=== PATIENT | male | born 1995 | race Caucasian/White ===

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

== ENCOUNTER 2019-01-25 16:00 | Emergency (ER) | payer SELFPAY ==
[~2019-01-25] VITALS: Ht 175.3 cm; Wt 113.4 kg
[~2019-01-25 16:00] MED LIST changes: +BENZ100C18 PO; +CEPH-507 PO; +NAPR-915 PO; -NAPR500T3 PO
[2019-01-25] MEDS ORDERED: ANTACID SUSP 30 ML UDC (MYLANTA) PO ONE (16:30)
[2019-01-25] MEDS ORDERED: LIDOCAINE 2% VISCOUS 15 ML UDC PO ONE (16:30)
[2019-01-25] MEDS ORDERED: NS IV 1000 ML 1,000 ML IV SCH (16:30)
[2019-01-25] MEDS ORDERED: ONDANSETRON 4 MG/2 ML (SDV) Z0FRAN IVP ONE (16:30)
[2019-01-25 16:41] LABS: BASOPHILS % (AUTO) 0 % (0-10); EOSINOPHILS # (AUTO) 0.2 10^3/uL (0.0-0.3); EOSINOPHILS % (AUTO) 2 % (0-10); HEMATOCRIT 46 % (40-54); HEMOGLOBIN 15.4 G/DL (13.3-17.7); LYMPHOCYTES # (AUTO) 2.9 X 10^3 (1.0-4.0); LYMPHOCYTES % (AUTO) 29 % (12-44); MEAN CORPUSCULAR HEMOGLOBIN 29 PG (25-34); MEAN CORPUSCULAR HGB CONC 34 G/DL (32-36); MEAN CORPUSCULAR VOLUME 86 FL (80-99); MEAN PLATELET VOLUME 9.4 FL (7.4-10.4); MONOCYTES # (AUTO) 0.6 X 10^3 (0.0-1.0); MONOCYTES % (AUTO) 6 % (0-12); NEUTROPHILS # (AUTO) 6.3 X 10^3 (1.8-7.8); NEUTROPHILS % (AUTO) 63 % (42-75); PLATELET COUNT 336 10^3/uL (130-400); RED CELL DISTRIBUTION WIDTH 12.7 % (10.0-14.5)
--- NOTE | 2019-01-25 16:46 | ED Abdominal Pain ---
General Chief Complaint: Abdominal/GI Problems Stated Complaint: STOMACH PAIN Nursing Triage Note: PT AMBULATE TO TRIAGE WITH C/O N/V FOR 2-3 DAYS. PT STATES THAT HE CANNOT KEEP ANYTHING DOWN AND WILL "DRY HEAVE" IF HE HASN'T EATEN ANYTHING. PT REPORTS ABD PAIN MIDLINE UPPER ABD. Sepsis Screen: No Definite Risk Source of Information: Patient Exam Limitations: No Limitations History of Present Illness Date Seen by Provider: Jan 25, 2019 Time Seen by Provider: 16:43 Initial Comments To ER with a 2 to three-day history of vomiting after eating and nausea when he hasn't eaten. Epigastric abdominal pain. This follows having a a few alcoholic drinks, can't quantify how much exactly the night before. Timing/Duration: 2-3 Days Severity/Quality: Moderate Radiation: No Radiation Activities at Onset: None Modifying Factors: Improves With Vomiting Associated Symptoms: Nausea/Vomiting Allergies and Home Medications Allergies Coded Allergies: No Known Drug Allergies (Unverified , 04/08/14) Home Medications Benzonatate 100 Mg Capsule, 100 MG PO TID PRN for COUGH Prescribed by: SHAHLA GARIBAY on 11/29/161921 Cephalexin 500 Mg Capsule, 500 MG PO TID Prescribed by: SHAHLA GARIBAY on 11/29/161921 Patient Home Medication List Home Medication List Reviewed: Yes Review of Systems Review of Systems Constitutional: see HPI EENTM: No Symptoms Reported Respiratory: No Symptoms Reported Gastrointestinal: See HPI, Abdominal Pain, Nausea, Vomiting Genitourinary: No Symptoms Reported Musculoskeletal: no symptoms reported Skin: no symptoms reported Psychiatric/Neurological: No Symptoms Reported Endocrine: No Symptoms Reported Hematologic/Lymphatic: No Symptoms Reported Past Hmlzimn-Ffrtoo-Wsbbme Hx Patient Social History Alcohol Use: Occasionally Uses Number of Drinks Today: AA Alcohol Beverage of Choice: Beer Recreational Drug Use: No Smoking Status: Current Everyday Smoker Type Used: Cigarettes 2nd Hand Smoke Exposure: Yes Recent Foreign Travel: No Contact w/Someone Who Travel: No Recent Infectious Disease Expo: No Recent Hopitalizations: No Physical Abuse: No Sexual Abuse: No Mistreated: No Fear: No Immunizations Up To Date PED Vaccines UTD: Yes Seasonal Allergies Seasonal Allergies: Yes Past Medical History Surgeries: Yes Adenoidectomy, Ear Surgery, Tonsillectomy Respiratory: No Cardiac: No Hypotension Neurological: No Headaches /Migraines Reproductive Disorders: No Sexually Transmitted Disease: No Genitourinary: No Gastrointestinal: No Musculoskeletal: No Endocrine: No HEENT: No Cancer: No Psychosocial: Yes Schizophrenia Integumentary: No Blood Disorders: No Family Medical History Heart Disease, Diabetes, Hypertension Physical Exam Vital Signs Vital Signs - First Documented 01/25/19 16:20 Temp 36.9 Pulse 89 Resp 18 B/P (MAP) 154/93 (113) O2 Delivery Room Air Capillary Refill : Less Than 3 Seconds Height/Weight/BMI Height: 5'9.00" Weight: 280lbs. 0oz. 127.726547ep; 36.00 BMI Method:Stated General Appearance: WD/WN, no apparent distress HEENT: PERRL/EOMI, normal ENT inspection Respiratory: no respiratory distress, no accessory muscle use Cardiovascular: regular rate, rhythm, no murmur Gastrointestinal: normal bowel sounds, soft, tenderness Extremities: normal range of motion, non-tender Neurologic/Psychiatric: alert, normal mood/affect, oriented x 3 Skin: normal color, warm/dry Progress/Results/Core Measures Results/Orders Lab Results Laboratory Tests Test 01/25/19 16:33 Range/Units My Orders Orders - SHAHLA GARIBAY APRN Cbc With Automated Diff (01/25/19 16:29) Comprehensive Metabolic Panel (01/25/19 16:29) Ua Culture If Indicated (01/25/19 16:29) Ed Iv/Invasive Line Start (01/25/19 16:29) Lipase (01/25/19 16:29) Ondansetron Injection (Zofran Injectio (01/25/19 16:30) Ns Iv 1000 Ml (Sodium Chloride 0.9%) (01/25/19 16:30) Antacid Suspension (Mylanta Suspension (01/25/19 16:30) Lidocaine 2% Viscous 15 Ml (Xylocaine Vi (01/25/19 16:30) Vital Signs/I&O 01/25/19 16:20 Temp 36.9 Pulse 89 Resp 18 B/P (MAP) 154/93 (113) O2 Delivery Room Air Blood Pressure Mean: 113 POS Departure Impression Primary Impression: Gastritis Qualified Codes: K29.00 - Acute gastritis without bleeding Disposition: 01 HOME, SELF-CARE Condition: Improved Departure-Patient Inst. Referrals: NO,LOCAL PHYSICIAN (PCP/Family) Primary Care Physician SHAHLA GARIBAY APRN Jan 25, 2019 16:46 POS
[2019-01-25 17:01] LABS: ALANINE AMINOTRANSFERASE 21 U/L (0-55); ALBUMIN 4.5 GM/DL (3.2-4.5); ALKALINE PHOSPHATASE 97 U/L (40-136); BILIRUBIN,TOTAL 0.4 MG/DL (0.1-1.0); BUN/CREATININE RATIO 12; CALCIUM 9.4 MG/DL (8.5-10.1); CARBON DIOXIDE 24 MMOL/L (21-32); CHLORIDE 106 MMOL/L (98-107); CREATININE SERUM 1.25 MG/DL (0.60-1.30); GFR ESTIMATED > 60; GLUCOSE 114 MG/DL (70-105); LIPASE 7 U/L (8-78); POTASSIUM 3.4 MMOL/L (3.6-5.0); SODIUM 141 MMOL/L (135-145); TOTAL PROTEIN 7.4 GM/DL (6.4-8.2)
[2019-01-25 17:49] LABS: CLARITY,URINE SL CLOUDY; COLOR,URINE YELLOW; GLUCOSE, URINE (UA) NEGATIVE (NEGATIVE); KETONES,URINE NEGATIVE (NEGATIVE); LEUKOCYTE ESTERASE ,URINE NEGATIVE (NEGATIVE); NITRITE,URINE NEGATIVE (NEGATIVE); PROTEIN,URINE NEGATIVE (NEGATIVE)
[2019-01-25 17:58] LABS: BACTERIA,URINE NEGATIVE /HPF; BILIRUBIN,URINE 1+ (NEGATIVE)
[2019-01-25] MEDS ORDERED: RX-HYDROCODONE/APAP 5/325 MG #4 TAB PK PO PRN (18:00)
[2019-01-25] MEDS ORDERED: RX-ONDANSETRON 4 MG ODT (ZOFRAN) PPK #4 PO STA (18:02)
[2019-01-25 18:14] VITALS: BP 155/97
== END 2019-01-25 18:15 | disposition home or self-care (01) ==
LOC: EDUNIT# 16:00 → ER 16:01
DX: K29.70 Gastritis, unspecified, without bleeding (principal); G43.909 Migraine, unspecified, not intractable, without status migrainosus; F20.9 Schizophrenia, unspecified; F17.210 Nicotine dependence, cigarettes, uncomplicated; Z90.89 Acquired absence of other organs; Z82.49 Family history of ischemic heart disease and other diseases of the circulatory system
CPT/HCPCS: 36415; 80053; 81000; 83690; 85025; 96361; 96374

== ENCOUNTER 2019-05-22 15:10 | Emergency (ER) | payer SELFPAY ==
[~2019-05-22] VITALS: Ht 172.7 cm; Wt 110.0 kg
[2019-05-22] MEDS ORDERED: NS IV 1000 ML 1,000 ML ONE (15:53)
[2019-05-22] MEDS ORDERED: NS IV 1000 ML 1,000 ML IV SCH (15:57)
[2019-05-22] MEDS ORDERED: LACTATED RINGERS 1,000 ML IV ONE ×2 (15:57→17:28)
[2019-05-22] MEDS ORDERED: ACETAMINOPHEN 500 MG TAB (TYLENOL) PO PRN (16:00)
--- NOTE | 2019-05-22 16:23 | ED Cough/URI ---
General Chief Complaint: Cough/Cold/Flu Symptoms Stated Complaint: FEVER,COUGHING,ACHES Nursing Triage Note: pt amb to triage with complaint of fever, cough, runny nose, and sore throat. 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 [employer], AND WENT TO BED YESTERDAY MORNING AND WAS COMPLETELY FINE WOKE UP YESTERDAY AROUND 1730, WITH FEVER AND SWEATING PROFUSELY HAS HAD A HEADACHE SINCE YESTERDAY C/O BODY ACHES C/O SEVERE SORE THROAT C/O OCCASIONALLY PRODUCTIVE COUGH --UNKNOWN COLOR SPUTUM C/O CLEAR RUNNY NOSE CHEST BRUCE WITH COUGHING AND ONLY GETS SHORT OF BREATH WHEN HE HAS A "COUGHING FITS" TOOK 4 TYLENOL JUST PRIOR TO ARRIVAL HAS NOT CHECKED TEMP AT HOME HAS NOT TAKEN ANYTHING ELSE FOR SYMPTOMS HIS ROOM MATE/"EX-GIRLFRIEND" IS NOT ILL DOES NOT KNOW IF HE HAS HAD CONTACT WITH ANYONE WHO IS ILL, THROUGH HIS WORK PT DOES NOT HAVE A HISTORY OF ANY RESPIRATORY PROBLEMS PT SMOKES 1 PPD PT ALSO SMOKES THC DAILY, INCLUDING TODAY PT ALSO SMOKES METH ON REGULAR /DAILY BASIS, CLAIMS LAST USE WAS 05/06/19 PCP: NONE Allergies and Home Medications Allergies Coded Allergies: No Known Drug Allergies (Unverified , 04/08/14) Home Medications Benzonatate 100 Mg Capsule, 100 MG PO TID PRN for COUGH Prescribed by: SHAHLA GARIBAY on 11/29/161921 Cephalexin 500 Mg Capsule, 500 MG PO TID Prescribed by: SHAHLA GARIBAY on 11/29/161921 Patient Home Medication List Home Medication List Reviewed: Yes Review of Systems Review of Systems Constitutional: see HPI, chills, diaphoresis, fever EENTM: see HPI, nose congestion, throat pain Respiratory: see HPI, cough, phlegm Cardiovascular: see HPI Gastrointestinal: no symptoms reported; No abdominal pain, No nausea Musculoskeletal: see HPI (BODY ACHES) Skin: no symptoms reported; No rash Psychiatric/Neurological: See HPI, Headache Hematologic/Lymphatic: No Symptoms Reported Immunological/Allergic: no symptoms reported Past Uckfyfq-Apskpu-Ugwhsj Hx Patient Social History Alcohol Use: Regular Use (24 PACK/ DAY) Number of Drinks Today: AA Alcohol Beverage of Choice: Beer Recreational Drug Use: Yes (SMOKES METH AND THC) Drug of Choice: SMOKES METH AND THC Smoking Status: Current Everyday Smoker (1 PPD) Type Used: Cigarettes 2nd Hand Smoke Exposure: Yes Recent Foreign Travel: No Contact w/Someone Who Travel: No Recent Infectious Disease Expo: No Recent Hopitalizations: No Immunizations Up To Date PED Vaccines UTD: Yes Seasonal Allergies Seasonal Allergies: Yes Past Medical History Surgeries: Yes Adenoidectomy, Ear Surgery, Tonsillectomy Respiratory: No Cardiac: No Hypotension Neurological: Yes Headaches /Migraines Reproductive Disorders: No Sexually Transmitted Disease: No Genitourinary: No Gastrointestinal: No Musculoskeletal: No Endocrine: No HEENT: No Cancer: No Psychosocial: Yes (POLYSUBSTANCE ABUSE) Schizophrenia Integumentary: No Blood Disorders: No Family Medical History Heart Disease, Diabetes, Hypertension Physical Exam Vital Signs - First Documented 05/22/19 15:17 Temp 37.6 Pulse 138 Resp 22 B/P (MAP) 127/87 (100) Pulse Ox 94 O2 Delivery Room Air Capillary Refill : Less Than 3 Seconds Height: 5'9.00" Weight: 280lbs. 0oz. 127.446043mu; 36.00 BMI Method:Stated General Appearance: WD/WN, no apparent distress, other (VERY ANXIOUS, PROFUSELY DIAPHORETIC, SKIN FLUSHED AND VERY WARM. PT MILDLY DYSPNEIC VS HYPERVENTILATING DUE TO ANXIETY) HEENT: PERRL/EOMI, TMs normal; No photophobia; pharyngeal erythema; No tonsillar exudate; other (NASAL CONGESTION, WITH CLEAR RHINORRHEA AND POST NASAL DRAINAGE) Neck: non-tender, full range of motion, supple, normal inspection; No lymphadenopathy (R), No lymphadenopathy (L) Respiratory: normal breath sounds, no accessory muscle use, other (MILD DYSPNEA/TACHYPNEA VS HYPERVENTILATING DUE TO ANXIETY) Cardiovascular: no edema, no murmur, tachycardia Gastrointestinal: normal bowel sounds, non tender, soft Extremities: normal inspection, no pedal edema, no calf tenderness, normal capillary refill Neurologic/Psychiatric: clinical faculty II-XII nml as tested, no motor/sensory deficits, alert, oriented x 3, other (ANXIOUS) Skin: diaphoresis (VERY WARM AND FLUSHED, PROFUSELY DIAPHORETIC. ), ecchymosis (EXTENSIVE OLD "BRUISES" TO ESPECIALLY RIGHT SHOULDER, TO CHEST, NECK AND LEFT SHOULDER--PT STATES "MY GIRLFRIEND IS EXCESSIVE" --STATES THEY ARE DUE TO "HICKEYS" AND NOT ACTUAL TRAUMA. ) Progress/Results/Core Measures Suspected Sepsis Recent Fever Within 48 Hours: Yes Infection Criteria Present: None New/Unexplained Altered Menta: No Sepsis Screen: No Definite Risk SIRS Temperature: Pulse: 138 Respiratory Rate: 22 Laboratory Tests 05/22/19 16:20: White Blood Count 19.9H Blood Pressure 127 /87 Mean: 100 Laboratory Tests 05/22/19 16:20: Creatinine 1.00, Platelet Count 375, Total Bilirubin 0.3 Results/Orders Lab Results Laboratory Tests Test 05/22/19 16:20 05/22/19 16:49 Range/Units White Blood Count 19.9 H 4.3-11.0 10^3/uL Red Blood Count 5.20 4.35-5.85 10^6/uL Hemoglobin 14.9 13.3-17.7 G/DL Hematocrit 44 40-54 % Mean Corpuscular Volume 85 80-99 FL Mean Corpuscular Hemoglobin 29 25-34 PG Mean Corpuscular Hemoglobin Concent 34 32-36 G/DL Red Cell Distribution Width 13.5 10.0-14.5 % Platelet Count 375 130-400 10^3/uL Mean Platelet Volume 9.0 7.4-10.4 FL Neutrophils (%) (Auto) 84 H 42-75 % Lymphocytes (%) (Auto) 7 L 12-44 % Monocytes (%) (Auto) 9 0-12 % Eosinophils (%) (Auto) 0 0-10 % Basophils (%) (Auto) 0 0-10 % Neutrophils # (Auto) 16.6 H 1.8-7.8 X 10^3 Lymphocytes # (Auto) 1.4 1.0-4.0 X 10^3 Monocytes # (Auto) 1.8 H 0.0-1.0 X 10^3 Eosinophils # (Auto) 0.0 0.0-0.3 10^3/uL Basophils # (Auto) 0.0 0.0-0.1 10^3/uL Neutrophils % (Manual) 79 % Lymphocytes % (Manual) 12 % Monocytes % (Manual) 9 % Blood Morphology Comment NORMAL Sodium Level 142 135-145 MMOL/L Potassium Level 3.6 3.6-5.0 MMOL/L Chloride Level 109 H 98-107 MMOL/L Carbon Dioxide Level 21 21-32 MMOL/L Anion Gap 12 5-14 MMOL/L Blood Urea Nitrogen 8 7-18 MG/DL Creatinine 1.00 0.60-1.30 MG/DL Estimat Glomerular Filtration Rate > 60 BUN/Creatinine Ratio 8 Glucose Level 113 H 70-105 MG/DL Calcium Level 8.9 8.5-10.1 MG/DL Corrected Calcium 8.7 8.5-10.1 MG/DL Magnesium Level 2.0 1.6-2.4 MG/DL Total Bilirubin 0.3 0.1-1.0 MG/DL Aspartate Amino Transf (AST/SGOT) 16 5-34 U/L Alanine Aminotransferase (ALT/SGPT) 37 0-55 U/L Alkaline Phosphatase 77 40-136 U/L Total Protein 7.3 6.4-8.2 GM/DL Albumin 4.3 3.2-4.5 GM/DL Serum Alcohol < 10 <10 MG/DL Monoscreen NEGATIVE NEGATIVE Group A Streptococcus Screen NEGATIVE NEGATIVE Urine Color YELLOW Urine Clarity CLEAR Urine pH 6.0 5-9 Urine Specific [place] >=1.030 1.016-1.022 Urine Protein TRACE H NEGATIVE Urine Glucose (UA) NEGATIVE NEGATIVE Urine Ketones NEGATIVE NEGATIVE Urine Nitrite NEGATIVE NEGATIVE Urine Bilirubin NEGATIVE NEGATIVE Urine Urobilinogen 0.2 < = 1.0 MG/DL Urine Leukocyte Esterase NEGATIVE NEGATIVE Urine RBC (Auto) NEGATIVE NEGATIVE Urine RBC 0-2 /HPF Urine WBC 2-5 /HPF Urine Crystals PRESENT H /LPF Urine Amorphous Sediment FEW ERIC URATES H /LPF Urine Bacteria TRACE /HPF Urine Casts NONE /LPF Urine Mucus LARGE H /LPF Urine Culture Indicated CULTURE PENDING Urine Opiates Screen NEGATIVE NEGATIVE Urine Oxycodone Screen NEGATIVE NEGATIVE Urine Methadone Screen NEGATIVE NEGATIVE Urine Propoxyphene Screen NEGATIVE NEGATIVE Urine Barbiturates Screen NEGATIVE NEGATIVE Ur Tricyclic Antidepressants Screen NEGATIVE NEGATIVE Urine Phencyclidine Screen NEGATIVE NEGATIVE Urine Amphetamines Screen NEGATIVE NEGATIVE Urine Methamphetamines Screen POSITIVE H NEGATIVE Urine Benzodiazepines Screen NEGATIVE NEGATIVE Urine Cocaine Screen NEGATIVE NEGATIVE Urine Cannabinoids Screen POSITIVE H NEGATIVE Micro Results Microbiology 05/22/19 Influenza Types A,B Antigen (DANICA) - Final, Complete My Orders Orders - FAVIO,KIKI K DO Ed Iv/Invasive Line Start (05/22/19 15:57) Monitor-Rhythm Ecg Trace Only (05/22/19 15:57) Cbc With Automated Diff (05/22/19 15:57) Comprehensive Metabolic Panel (05/22/19 15:57) Blood Culture (05/22/19 15:57) Urinalysis (05/22/19 15:57) Urine Culture (05/22/19 15:57) Protime With Inr (05/22/19 15:57) Partial Thromboplastin Time (05/22/19 15:57) Chest 1 View, Ap/Pa Only (05/22/19 15:57) Acetaminophen Tablet (Tylenol Tablet) (05/22/19 16:00) Ed Iv/Invasive Line Start (05/22/19 15:57) Ed Iv/Invasive Line Start (05/22/19 15:57) Vital Signs Adult Sepsis Patie Q15M (05/22/19 15:57) O2 (05/22/19 15:57) Remove Rings In Anticipation O (05/22/19 15:57) Lactic Acid Analyzer (05/22/19 15:57) Lactated Ringers (Lr 1000 Ml Iv Solution (05/22/19 15:57) Ns Iv 1000 Ml (Sodium Chloride 0.9%) (05/22/19 15:57) Drug Screen Stat (Urine) (05/22/19 15:57) Magnesium (05/22/19 15:57) Monotest (05/22/19 15:57) Rapid Strep A Screen (05/22/19 15:57) Ns Iv 1000 Ml (Sodium Chloride 0.9%) (05/22/19 15:53) Manual Differential (05/22/19 16:20) Alcohol (05/22/19 16:42) Ceftriaxone For Iv Use (Rocephin For I (05/22/19 17:30) Ed Iv/Invasive Line Start (05/22/19 17:28) Lactated Ringers (Lr 1000 Ml Iv Solution (05/22/19 17:28) Vital Signs/I&O 05/22/19 15:17 Temp 37.6 Pulse 138 Resp 22 B/P (MAP) 127/87 (100) Pulse Ox 94 O2 Delivery Room Air Capillary Refill : Less Than 3 Seconds Blood Pressure Mean: 100 Progress Note : Progress Note USED FULL PPE AT ALL TIMES WHEN IN ROOM WITH PT. NO COUGH NOTED AT ANY TIME DURING ER STAY GIVEN IV FLUIDS AND PT CALMED, HEART RATE DOWN AND IS NO LONGER DIAPHORETIC, RESPIRATIONS ARE EVEN AND UNLABORED PT ADVISED THAT BOTH HE AND HIS ROOM MATE SELF - QUARANTINE FOR THE NEXT 14 DAYS Diagnostic Imaging Comments CXR--NO ACUTE PROCESS, PER RADIOLOGIST REPORT AT 1717 Reviewed: Reviewed by Me Departure Communication (Admissions) 1729--ATTEMPTING TO CONTACT [facility] 1743--SPOKE WITH SCREENER, SHE ADVISES TO DISCUSS WITH CEMENTER MACHINE 1745--PAGING CEMENTER MACHINE, WILL CALL BACK 1805--SPOKE WITH [facility] CEMENTER MACHINE, HE ADVISES TESTING, BUT RECOMMENDS SENDING TO ALTERNATIVE LAB SUCH [facility] OR [facility], THEY ARE AT NEAR-CAPACITY, AND TURNAROUND IS GREATER THAN 3 DAYS WITH [facility]. PT DOES NOT MEET ADMISSION CRITERIA, AND PT'S SYMPTOMS COULD ALSO BE ATTRIBUTED TO HIS RECENT METHAMPHETAMINE USE. WILL TREAT PROPHYLACTICALLY WITH ANTIBIOTICS DUE TO LEUKOCYTOSIS Impression Primary Impression: Fever Additional Impressions: Methamphetamine use Leukocytosis Disposition: HOME, SELF-CARE Condition: Improved Departure-Patient Inst. Referrals: NO,LOCAL PHYSICIAN (PCP/Family) Primary Care Physician Patient Instructions: COVID19, Fever, Adult (DC), Methamphetamine Add. Discharge Instructions: NO DRUGS OF ANY KIND!!! NO SMOKING !!!! NO ALCOHOL!!!! LOTS OF CLEAR LIQUIDS--WATER, BROTH, JELLO, GATORADE--DRINK ENOUGH FLUIDS SO YOU ARE URINATING EVERY 2-3 HOURS WHILE AWAKE TAKE TYLENOL 1 GRAM/ AND MOTRIN 800 MG 4 TIMES A DAY FOR PAIN OR FEVER OVER THE COUNTER MEDICATIONS FOR COUGH AND CONGESTION SUCH MUCINEX DM SELF-QUARANTINE FOR BOTH YOU AND YOUR ROOM MATE FOR THE NEXT 14 DAYS RETURN TO ER IF SYMPTOMS WORSEN All discharge instructions reviewed with patient and/or family. Voiced understanding. Scripts Cefdinir (Cefdinir) 300 Mg Capsule 300 MG PO BID, #20 CAP 0 Refills Prov: KIKI STAHL DO 05/22/19 Work/School Note: Work Release Form Date Seen in the Emergency Department: May 22, 2019 Return to Work: Jun 05, 2019 KIKI STAHL DO May 22, 2019 16:23
[2019-05-22 16:30] LABS: BASOPHILS % (AUTO) 0 % (0-10); EOSINOPHILS % (AUTO) 0 % (0-10); HEMATOCRIT 44 % (40-54); HEMOGLOBIN 14.9 G/DL (13.3-17.7); LYMPHOCYTES # (AUTO) 1.4 X 10^3 (1.0-4.0); LYMPHOCYTES % (AUTO) 7 % (12-44); MEAN CORPUSCULAR HEMOGLOBIN 29 PG (25-34); MEAN CORPUSCULAR HGB CONC 34 G/DL (32-36); MEAN CORPUSCULAR VOLUME 85 FL (80-99); MONOCYTES # (AUTO) 1.8 X 10^3 (0.0-1.0); MONOCYTES % (AUTO) 9 % (0-12); NEUTROPHILS # (AUTO) 16.6 X 10^3 (1.8-7.8); NEUTROPHILS % (AUTO) 84 % (42-75); PLATELET COUNT 375 10^3/uL (130-400); RED CELL DISTRIBUTION WIDTH 13.5 % (10.0-14.5); WHITE BLOOD COUNT 19.9 10^3/uL (4.3-11.0)
[2019-05-22 16:53] LABS: BILIRUBIN,URINE NEGATIVE (NEGATIVE); CLARITY,URINE CLEAR; COLOR,URINE YELLOW; GLUCOSE, URINE (UA) NEGATIVE (NEGATIVE); KETONES,URINE NEGATIVE (NEGATIVE); LEUKOCYTE ESTERASE ,URINE NEGATIVE (NEGATIVE); NITRITE,URINE NEGATIVE (NEGATIVE); PROTEIN,URINE TRACE (NEGATIVE)
[2019-05-22 16:55] LABS: LYMPHOCYTES % (MANUAL) 12 %; MONOCYTES % (MANUAL) 9 %; NEUTROPHILS % (MANUAL) 79 %; RBC MORPH NORMAL
[2019-05-22 17:00] LABS: ALANINE AMINOTRANSFERASE 37 U/L (0-55); ALBUMIN 4.3 GM/DL (3.2-4.5); ALKALINE PHOSPHATASE 77 U/L (40-136); BILIRUBIN,TOTAL 0.3 MG/DL (0.1-1.0); BUN/CREATININE RATIO 8; CALCIUM 8.9 MG/DL (8.5-10.1); CARBON DIOXIDE 21 MMOL/L (21-32); CHLORIDE 109 MMOL/L (98-107); GFR ESTIMATED > 60; GLUCOSE 113 MG/DL (70-105); POTASSIUM 3.6 MMOL/L (3.6-5.0); SODIUM 142 MMOL/L (135-145); TOTAL PROTEIN 7.3 GM/DL (6.4-8.2)
--- NOTE | 2019-05-22 17:06 | Diagnostic Imaging Report ---
INDICATION: Fever and cough. COMPARISON: Comparison is made to prior study from November 21, 2016. FINDINGS: Lungs demonstrate no focal infiltrate or consolidation. There is no effusion. There is no pneumothorax. Heart size and mediastinal contours are appropriate. Pulmonary vascularity appears normal. No acute or suspicious osseous abnormality demonstrated. IMPRESSION: 1. No radiographic evidence of an acute cardiopulmonary process. Dictated by: Dictated on workstation # [id number]
[2019-05-22 17:23] LABS: AMPHETAMINE SCREEN, URINE NEGATIVE (NEGATIVE); BARBITURATE SCREEN URINE NEGATIVE (NEGATIVE); BENZODIAZEPINES SCREEN URINE NEGATIVE (NEGATIVE); CANNABINOID SCREEN, URINE POSITIVE (NEGATIVE); COCAINE SCREEN URINE NEGATIVE (NEGATIVE); METHADONE STAT NEGATIVE (NEGATIVE); METHAMPHETAMINE SCREEN URINE S POSITIVE (NEGATIVE); OPIATE SCREEN URINE NEGATIVE (NEGATIVE); OXYCODONE STAT NEGATIVE (NEGATIVE); PROPOXYPHENE STAT NEGATIVE (NEGATIVE); TRICYCLIC ANTIDEPRESSANTS SCRE NEGATIVE (NEGATIVE)
[2019-05-22 17:30] LABS: AMORPHOUS SEDIMENT,UR FEW AMOR URATES /LPF; BACTERIA,URINE TRACE /HPF; RBC,URINE 0-2 /HPF
[2019-05-22] MEDS ORDERED: cefTRIAXone FOR IV USE 1,000 MG in WATER (STERILE) FOR INJECTION 10 ML IV ONE (17:30)
[2019-05-22 18:21] LABS: PROTHROMBIN TIME PATIENT 13.8 SEC (12.2-14.7)
[2019-05-22] MEDS ORDERED: CEFD300C3 PO (18:27)
[2019-05-22 19:40] VITALS: BP 128/83
--- NOTE | 2019-05-24 18:54 | NUR ---
Attempted to call patient on both numbers given to us and they were not good numbers for him. His COVID-19 test results are negative and called to the [facility] Department who will try to contact him.
== END 2019-05-22 19:40 | disposition home or self-care (01) ==
LOC: EDUNIT# 15:10 → ER 15:12
DX: D72.829 Elevated white blood cell count, unspecified (principal); F15.10 Other stimulant abuse, uncomplicated; F17.210 Nicotine dependence, cigarettes, uncomplicated
CPT/HCPCS: 36415; 71045; 80053; 80306; 80320; 81000; 83605; 83735; 85007; 85027; 85610; 85730; 86308; 87040; 87088; 87430; 87635; 87804; 93041; 96361; 96374

== ENCOUNTER 2020-01-25 14:03 | Emergency (ER) | payer SELFPAY ==
[~2020-01-25] VITALS: Ht 172.7 cm; Wt 99.7 kg
[~2020-01-25 14:03] MED LIST changes: +CEFD300C3 PO
[2020-01-25 14:11] VITALS: BP 143/93
--- NOTE | 2020-01-25 14:20 | ED Integumentary General ---
General Stated Complaint: LAC FAC, ABD PAIN Source: patient Exam Limitations: no limitations History of Present Illness Date Seen by Provider: Jan 25, 2020 Time Seen by Provider: 14:19 Initial Comments This is a 24-year-old male who presents to the ER with complaints of left facial laceration from a utility knife. States he went to bed drunk, woke up drunk, and was working in his garage when he accidentally cut the side of his face with a work knife. Bleeding controlled prior to arrival. Last tetanus unknown. No other injuries reported. Timing/Duration: just prior to arrival Allergies and Home Medications Allergies Coded Allergies: No Known Drug Allergies (Unverified , 04/08/14) Home Medications Benzonatate 100 Mg Capsule, 100 MG PO TID PRN for COUGH Prescribed by: SHAHLA GARIBAY on 11/29/161921 Cefdinir 300 Mg Capsule, 300 MG PO BID Prescribed by: KIKI STAHL on 05/22/191826 Cephalexin 500 Mg Capsule, 500 MG PO TID Prescribed by: SHAHLA GARIBAY on 11/29/161921 Patient Home Medication List Home Medication List Reviewed: Yes Review of Systems Review of Systems Constitutional: no symptoms reported EENTM: no symptoms reported Respiratory: no symptoms reported Cardiovascular: no symptoms reported Gastrointestinal: no symptoms reported Genitourinary: no symptoms reported Musculoskeletal: no symptoms reported Skin: see HPI Psychiatric/Neurological: No Symptoms Reported Endocrine: No Symptoms Reported Hematologic/Lymphatic: No Symptoms Reported Past Ewdmksv-Horbnw-Fohazq Hx Patient Social History Alcohol Beverage of Choice: Beer Drug of Choice: SMOKES METH AND THC Type Used: Cigarettes 2nd Hand Smoke Exposure: Yes Recent Foreign Travel: No Contact w/Someone Who Travel: No (N) Recent Hopitalizations: No Immunizations Up To Date PED Vaccines UTD: Yes Seasonal Allergies Seasonal Allergies: Yes Past Medical History Surgeries: Yes Adenoidectomy, Ear Surgery, Tonsillectomy Respiratory: No Cardiac: No Hypotension Neurological: Yes Headaches /Migraines Reproductive Disorders: No Sexually Transmitted Disease: No Genitourinary: No Gastrointestinal: No Musculoskeletal: No Endocrine: No HEENT: No Cancer: No Psychosocial: Yes (POLYSUBSTANCE ABUSE) Schizophrenia Integumentary: No Blood Disorders: No Family Medical History Heart Disease, Diabetes, Hypertension Physical Exam Vital Signs Vital Signs - First Documented 01/25/20 14:11 Pulse 99 Resp 20 B/P (MAP) 143/93 (110) Pulse Ox 96 O2 Delivery Room Air Capillary Refill : General Appearance: WD/WN, no apparent distress HEENT: PERRL/EOMI, normal ENT inspection, pharynx normal Neck: full range of motion, normal inspection Cardiovascular: regular rate, rhythm, no murmur Respiratory: lungs clear, normal breath sounds, no respiratory distress Extremities: normal range of motion, normal inspection Neurologic/Psychiatric: no motor/sensory deficits, alert, normal mood/affect, oriented x 3 Skin: normal color, warm/dry Skin Problem Location: face Skin Problem Character: other (3 cm laceration to left cheek) Procedures/Interventions Wound Location: Face (, left cheek) Wound Length (cm): 3 Wound's Depth, Shape: linear Wound Explored: clean Anesthesia: 1% Lidocaine Volume Anesthetic (ccs): 2 Suture: Prolene Suture Size: 5-0 Number of Sutures: 4 Progress Site cleansed with normal saline and chlorhexidine prep. Locally anesthetized area with 2 cc of lidocaine. Approximated laceration with 4 sutures, tolerated procedure well. Progress/Results/Core Measures Results/Orders My Orders Orders - NICOLE FIGUEROA APRN Dipht,Pertuss(Acell),Tet Adult (Boostrix (01/25/20 14:30) Lidocaine 1% Inj 20 Ml (Xylocaine 1% Inj (01/25/20 14:30) Medications Given in ED Current Medications Medications Dose Ordered Sig/Tiki Route Start Time Stop Time Status Last Admin Dose Admin Diphtheria/ Tetanus/Acell Pertussis 0.5 ml ONCE ONCE IM 01/25/20 14:30 01/25/20 14:31 DC 01/25/20 15:25 0.5 ML Lidocaine HCl 20 ml ONCE ONCE INJ 01/25/20 14:30 01/25/20 14:31 DC 01/25/20 15:25 20 ML Vital Signs/I&O 01/25/20 14:11 Pulse 99 Resp 20 B/P (MAP) 143/93 (110) Pulse Ox 96 O2 Delivery Room Air Progress Progress Note : Progress Note Reviewed discharge plan of care with him and he is agreeable with plan. Departure Impression Primary Impression: Laceration Disposition: 01 HOME, SELF-CARE Condition: Improved Departure-Patient Inst. Referrals: NO,LOCAL PHYSICIAN (PCP/Family) Primary Care Physician Patient Instructions: Laceration Repair With Stitches (DC) Add. Discharge Instructions: Plan: 1. Discharge home. 2. Return in 5 days to the ER for suture removal. 3. May wash with soap and water, pat dry, cover with dry dressing of working outside. 4. Monitor for any signs of infection such as redness, swelling, purulent drainage. Return if he develop any of these symptoms. 5. Your tetanus was updated today. NICOLE FIGUEROA ALUMNI SECRETARY Jan 25, 2020 14:20
[2020-01-25] MEDS ORDERED: TETANUS,DIPTH,PERTUSS P/F (BOOSTRIX) 0.5 ML VIAL IM ONE (14:30)
[2020-01-25] MEDS ORDERED: LIDOCAINE 1% INJ 20 ML 20 ML VIAL INJ ONE (14:30)
== END 2020-01-25 16:32 | disposition home or self-care (01) ==
LOC: EDUNIT# 14:03 → ER 14:04
DX: S01.412A Laceration without foreign body of left cheek and temporomandibular area, initial encounter (principal); Z23 Encounter for immunization; Z20.828 Contact with and (suspected) exposure to other viral communicable diseases; Z82.49 Family history of ischemic heart disease and other diseases of the circulatory system; Z83.3 Family history of diabetes mellitus; Z77.22 Contact with and (suspected) exposure to environmental tobacco smoke (acute) (chronic); W26.0XXA Contact with knife, initial encounter
CPT/HCPCS: 12013; 90715

== ENCOUNTER 2021-05-24 08:28 | Emergency (ER) | payer SELFPAY ==
[~2021-05-24] VITALS: Ht 172.7 cm; Wt 104.5 kg
[2021-05-24] MEDS ORDERED: IBUPROFEN 800 MG (MOTRIN) TAB PO ONE (08:45)
--- NOTE | 2021-05-24 08:45 | ED Fall/Injury ---
General Stated Complaint: FALL - L LEG PAIN Source: patient Exam Limitations: no limitations History of Present Illness Date Seen by Provider: May 24, 2021 Time Seen by Provider: 08:33 Initial Comments The patient presents to the ER by private conveyance with significant other and chief complaint that he had a fall at his own stairs down about 8 steps abrading the lateral portion of his left leg and having pain in his left ankle especially on weightbearing. He is now able to bear weight albeit painfully. No previous injuries or surgeries or medical history. He has not take anything for pain yet. 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 No numbness or tingling. No loss of consciousness nor did he strike his head. No history of seizures. He says he just missed the step and fell. Allergies and Home Medications Allergies Coded Allergies: No Known Drug Allergies (Unverified , 04/08/14) Patient Home Medication List Home Medication List Reviewed: Yes Benzonatate (Tessalon Perles) 100 Mg Capsule, 100 MG PO TID PRN for COUGH Prescribed by: SHAHLA GARIBAY on 11/29/161921 Cefdinir (Cefdinir) 300 Mg Capsule, 300 MG PO BID Prescribed by: KIKI STAHL on 05/22/191826 Cephalexin (Keflex) 500 Mg Capsule, 500 MG PO TID Prescribed by: SHAHLA GARIBAY on 11/29/161921 Review of Systems Review of Systems Constitutional: No chills, No diaphoresis Eyes: Denies Blindness, Denies Drainage Ears, Nose, Mouth, Throat: denies ear pain, denies ear discharge Respiratory: No cough, No phlegm Cardiovascular: No chest pain, No palpitations All Other Systems Reviewed Negative Unless Noted: Yes Past Tkbpqpb-Fjnymk-Gjbfuf Hx Patient Social History Tobacco Use?: No Use of E-Cig and/or Vaping dev: No Immunizations Up To Date Tetanus Booster (TDap): More than 5yrs PED Vaccines UTD: Yes Seasonal Allergies Seasonal Allergies: Yes Past Medical History Surgeries: Yes Adenoidectomy, Ear Surgery, Tonsillectomy Respiratory: No Cardiac: No Hypotension Neurological: Yes Headaches /Migraines Reproductive Disorders: No Sexually Transmitted Disease: No Genitourinary: No Gastrointestinal: No Musculoskeletal: No Endocrine: No HEENT: No Cancer: No Psychosocial: Yes (POLYSUBSTANCE ABUSE) Schizophrenia Integumentary: No Blood Disorders: No Family Medical History Heart Disease, Diabetes, Hypertension Physical Exam Vital Signs Vital Signs - First Documented 05/24/21 08:42 Temp 36.8 Pulse 103 Resp 18 B/P (MAP) 160/90 (113) Pulse Ox 95 O2 Delivery Room Air Capillary Refill : Height, Weight, BMI Height: 5'9.00" Weight: 280lbs. 0oz. 127.064132yi; 33.00 BMI Method:Stated General Appearance: WD/WN, mild distress HEENT: PERRL/EOMI, pharynx normal Neck: full range of motion, normal inspection Cardiovascular: normal peripheral pulses, regular rate, rhythm Respiratory: no respiratory distress, no accessory muscle use Extremities: normal capillary refill, other (Superficial abrasions and bruising along the left anterior lateral tibia-fibula with erythema and mild swelling along the left lateral malleolus. Tenderness to palpation over the left lateral malleolus posteriorly. Medial malleolus is nontender. No deformity or crepitus. The tarsals and metatarsals are nontender, nondeformed. Range of motion of the foot and ankle are intact.) Neurologic/Psychiatric: no motor/sensory deficits, alert Skin: normal color, warm/dry [place] Coma Score Best Eye Response: (4) Open Spontaneously Best Verbal Response: (5) Oriented Best Motor Response: (6) Obeys Commands Graciela Total: 15 Procedures/Interventions Suture Size: 5-0 Progress/Results/Core Measures Results/Orders My Orders Orders - SOTERO ALVAREZ Tibia/Fibula, Left, 2 Views (05/24/21 08:40) Ankle, Left, 3 Views (05/24/21 08:40) Ibuprofen Tablet (Motrin Tablet) (05/24/21 08:45) Medications Given in ED Current Medications Medications Dose Ordered Sig/Tiki Route Start Time Stop Time Status Last Admin Dose Admin Ibuprofen 800 mg ONCE ONCE PO 05/24/21 08:45 05/24/21 08:46 DC 05/24/21 08:48 800 MG Vital Signs/I&O 05/24/21 08:42 Temp 36.8 Pulse 103 Resp 18 B/P (MAP) 160/90 (113) Pulse Ox 95 O2 Delivery Room Air Progress Progress Note : Time: 08:44 Progress Note Ibuprofen, ice, elevation and an x-ray of the left ankle and tibia-fibula. Diagnostic Imaging Diagonstic Imaging: Xray Plain Films/CT/US/NM/MRI: leg (Left tibia and fibula) Comments [facility] [place] NAME: LOKI MCMILLAN [facility] REC#: [id number] PT STATUS: REG ER : 1995 PHYSICIAN: SOTERO ALVAREZ MD ADMIT DATE: 05/24/21/ER Draft Date of Exam:05/24/21 TIBIA/FIBULA, LEFT, 2 VIEWS INDICATION: Leg pain. EXAMINATION: Left tibia fibula 05/24/2021 2 views of the tibia and fibula FINDINGS: There is no evidence for an acute fracture or dislocation. The joint spaces are well maintained. There is no significant soft tissue swelling. IMPRESSION: No acute process. Dictated on workstation # [id number] Dict: 05/24/21912 Trans: 05/24/21914 [id number] Interpreted by: JACOBO LOZANO MD Electronically signed by: Reviewed: Reviewed by Ia Diagonstic Imaging: Xray Plain Films/CT/US/NM/MRI: ankle (Left) Comments [facility] [place] NAME: LOKI MCMILLAN [facility] REC#: [id number] PT STATUS: REG ER : 1995 PHYSICIAN: SOTERO ALVAREZ MD ADMIT DATE: 05/24/21/ER Draft Date of Exam:05/24/21 ANKLE, LEFT, 3 VIEWS INDICATION: Fall with left ankle injury. TIME OF EXAM: 8:58 AM Three views of the left ankle were obtained. Alignment is normal. Ankle mortise is well-maintained. Talar dome is smooth. No fracture or dislocation is identified. There is soft tissue swelling laterally. There is a well-corticated osseous density at the tip of the distal fibula suggestive of an old avulsion. IMPRESSION: Lateral ankle swelling. No acute bony abnormality is detected. Dictated on workstation # [id number] Dict: 05/24/21911 Trans: 05/24/21914 [facility] [id number] Interpreted by: GRIFFIN VU MD Electronically signed by: Reviewed: Reviewed by Me Departure Impression Primary Impression: Fall down stairs Qualified Codes: W10.8XXA - Fall (on) (from) other stairs and steps, initial encounter Additional Impressions: Multiple abrasions Left ankle sprain Qualified Codes: S93.402A - Sprain of unspecified ligament of left ankle, initial encounter Disposition: 01 HOME, SELF-CARE Condition: Stable Departure-Patient Inst. Decision time for Depature: 09:15 Referrals: NO,LOCAL PHYSICIAN (PCP) Primary Care Physician DURAN SWAN MD Patient Instructions: Ankle Sprain (DC) Add. Discharge Instructions: Keep your ankle elevated above the level of your heart while at rest. Use the crutches if necessary otherwise bear weight as much as you can tolerate it. Symptoms should improve over a week or 2. If you are still having pain or it is getting worse then I will have you follow-up with your primary care doctor or Dr. Swan, orthopedic surgery for reexamination. Tylenol 1000 mg every 8 hours as necessary for pain. Ibuprofen 800 mg every 8 hours as necessary for pain. Topical creams such as icy hot or Biofreeze can be helpful. Ice 20 minutes on every 2 hours while awake for the first 2 days to reduce swelling and pain. Heat may be helpful after the first 2 days. Wear a compression dressing such as a neoprene ankle sleeve or an elastic bandage like Ubaldo wrap to reduce compression and pain. Work/School Note: Work Release Form Date Seen in the Emergency Department: May 24, 2021 Return to Work: May 24, 2021 Restrictions: Need Release from Doctor Other Restrictions Listed Below: Walk on a generally flat surface only and may use crutches until 05/29/2021. SOTERO ALVAREZ May 24, 2021 08:45
--- NOTE | 2021-05-24 09:15 | Diagnostic Imaging Report ---
INDICATION: Leg pain. EXAMINATION: Left tibia fibula 05/24/2021 2 views of the tibia and fibula FINDINGS: There is no evidence for an acute fracture or dislocation. The joint spaces are well maintained. There is no significant soft tissue swelling. IMPRESSION: No acute process. Dictated by: Dictated on workstation # [id number]
--- NOTE | 2021-05-24 09:16 | Diagnostic Imaging Report ---
INDICATION: Fall with left ankle injury. TIME OF EXAM: 8:58 AM Three views of the left ankle were obtained. Alignment is normal. Ankle mortise is well-maintained. Talar dome is smooth. No fracture or dislocation is identified. There is soft tissue swelling laterally. There is a well-corticated osseous density at the tip of the distal fibula suggestive of an old avulsion. IMPRESSION: Lateral ankle swelling. No acute bony abnormality is detected. Dictated by: Dictated on workstation # [id number]
[2021-05-24 09:43] VITALS: BP 160/90
== END 2021-05-24 09:43 | disposition home or self-care (01) ==
LOC: EDUNIT# 08:28 → ER 08:29
DX: S93.402A Sprain of unspecified ligament of left ankle, initial encounter (principal); W10.8XXA Fall (on) (from) other stairs and steps, initial encounter
CPT/HCPCS: 73590; 73610

== ENCOUNTER 2022-01-18 05:34 | Day surgery (SDC) | payer SELFPAY ==
[~2022-01-18] VITALS: Ht 175 cm; Wt 104.5 kg
[2022-01-18] VITALS (7 sets, daily range): BP systolic 138–185; BP diastolic 79–105
[2022-01-18] MEDS ORDERED: KETOROLAC 30 MG/ML VIAL IVP STA (06:18)
[2022-01-18] MEDS ORDERED: NS IV 1000 ML 1,000 ML IV STA (06:18)
[2022-01-18] MEDS ORDERED: fentaNYL INJ 100 MCG/2 ML AMP IVP STA ×2 (06:18→08:09)
--- NOTE | 2022-01-18 06:23 | ED Abdominal Pain ---
General Chief Complaint: Abdominal/GI Problems Stated Complaint: ABD PAIN Nursing Triage Note: c/o constant progressively worsening sharp mid abdominal pain radiating to right side x 2 days. denies n/v/d Source of Information: Patient Exam Limitations: No Limitations History of Present Illness Date Seen by Provider: Jan 18, 2022 Time Seen by Provider: 06:00 Initial Comments Here with report of right lower quadrant abdominal pain started more central but moving more towards the right. This has been going on for 2 days. It is associated with nausea and some dry heaves as well as diarrhea. Moving around makes it worse. Reports that it is hard to get into a comfortable position. Denies blood in his urine or stool. He has not had anything like this before. Markedly worsening overnight. Timing/Duration: 2-3 Days Severity/Quality: Moderate, Aching Location: Periumbilical Radiation: RLQ Activities at Onset: None Modifying Factors: Worsens With Movement, Worsens With Palpation Associated Symptoms: No Back Pain, No Chest Pain, No Fever/Chills; Nausea/Vomiting; No Shortness of Air, No Weakness Allergies and Home Medications Allergies Coded Allergies: No Known Drug Allergies (Unverified , 04/08/14) Patient Home Medication List Home Medication List Reviewed: Yes No Active Prescriptions or Reported Meds Review of Systems Review of Systems Constitutional: see HPI; No chills, No fever EENTM: No Nose Congestion, No Throat Pain Respiratory: Denies Cough, Denies Shortness of Air Cardiovascular: Denies Chest Pain, Denies Edema Gastrointestinal: Abdominal Pain, Diarrhea, Nausea, Vomiting Genitourinary: No Symptoms Reported Musculoskeletal: No back pain, No muscle pain All Other Systems Reviewed Negative Unless Noted: Yes Past Qwolrls-Tlwwnb-Smzwtv Hx Patient Social History Tobacco Use?: Yes Tobacco type used: Cigarettes Substance use?: Yes Substance type: Marijuana Alcohol Use?: Yes Alcohol Frequency: Once in a while Pt feels they are or have been: No Immunizations Up To Date Tetanus Booster (TDap): More than 5yrs PED Vaccines UTD: Yes First/Initial COVID19 Vaccinat: na Seasonal Allergies Seasonal Allergies: Yes Past Medical History Surgery/Hospitalization HX: t/a, ear headaches, hypertension, schizophrenia Surgeries: Yes Adenoidectomy, Ear Surgery, Tonsillectomy Respiratory: No Cardiac: No Hypotension Neurological: Yes Headaches /Migraines Reproductive Disorders: No Sexually Transmitted Disease: No Genitourinary: No Gastrointestinal: No Musculoskeletal: No Endocrine: No HEENT: No Cancer: No Psychosocial: Yes (POLYSUBSTANCE ABUSE) Schizophrenia Integumentary: No Blood Disorders: No Family Medical History Reviewed Nursing Family Hx Heart Disease, Diabetes, Hypertension Physical Exam Vital Signs Vital Signs - First Documented 01/18/22 05:41 Temp 36.4 Pulse 76 Resp 16 B/P (MAP) 166/113 (130) Pulse Ox 96 O2 Delivery Room Air Capillary Refill : Less Than 3 Seconds Height/Weight/BMI Height: 5'9.00" Weight: 280lbs. 0oz. 127.879849tm; 34.00 BMI Method:Stated General Appearance: WD/WN, mild distress HEENT: PERRL/EOMI, pharynx normal Neck: full range of motion, supple Respiratory: lungs clear, normal breath sounds Cardiovascular: regular rate, rhythm, no murmur Peripheral Pulses: 2+ Dorsalis Pedis (R), 2+ Left Dors-Pedis (L), 2+ Radial Pulses (R), 2+ Radial Pulses (L) Gastrointestinal: normal bowel sounds, soft; No guarding, No rebound; tenderness (Right lower quadrant) Extremities: non-tender, normal inspection Back: normal inspection, no CVA tenderness, no vertebral tenderness Neurologic/Psychiatric: alert, oriented x 3 Skin: normal color, warm/dry Procedures/Interventions Suture Size: 5-0 Progress/Results/Core Measures Results/Orders Lab Results Laboratory Tests Test 01/18/22 06:24 01/18/22 07:15 Range/Units White Blood Count 20.5 H 4.3-11.0 10^3/uL Red Blood Count 4.97 4.30-5.52 10^6/uL Hemoglobin 16.1 13.3-17.7 g/dL Hematocrit 46 40-54 % Mean Corpuscular Volume 93 80-99 fL Mean Corpuscular Hemoglobin 32 25-34 pg Mean Corpuscular Hemoglobin Concent 35 32-36 g/dL Red Cell Distribution Width 12.3 10.0-14.5 % Platelet Count 308 130-400 10^3/uL Mean Platelet Volume 8.7 L 9.0-12.2 fL Immature Granulocyte % (Auto) 0 % Neutrophils (%) (Auto) 91 H 42-75 % Lymphocytes (%) (Auto) 4 L 12-44 % Monocytes (%) (Auto) 5 0-12 % Eosinophils (%) (Auto) 0 0-10 % Basophils (%) (Auto) 0 0-10 % Neutrophils # (Auto) 18.6 H 1.8-7.8 10^3/uL Lymphocytes # (Auto) 0.8 L 1.0-4.0 10^3/uL Monocytes # (Auto) 1.0 0.0-1.0 10^3/uL Eosinophils # (Auto) 0.0 0.0-0.3 10^3/uL Basophils # (Auto) 0.0 0.0-0.1 10^3/uL Immature Granulocyte # (Auto) 0.1 0.0-0.1 10^3/uL Neutrophils % (Manual) 92 % Lymphocytes % (Manual) 2 % Monocytes % (Manual) 5 % Reactive Lymphocytes 1 % Blood Morphology Comment NORMAL Sodium Level 139 135-145 MMOL/L Potassium Level 4.0 3.6-5.0 MMOL/L Chloride Level 104 98-107 MMOL/L Carbon Dioxide Level 21 21-32 MMOL/L Anion Gap 14 5-14 MMOL/L Blood Urea Nitrogen 12 7-18 MG/DL Creatinine 0.88 0.60-1.30 MG/DL Estimat Glomerular Filtration Rate 123 BUN/Creatinine Ratio 14 Glucose Level 117 H 70-105 MG/DL Calcium Level 9.6 8.5-10.1 MG/DL Corrected Calcium 9.2 8.5-10.1 MG/DL Total Bilirubin 0.8 0.1-1.0 MG/DL Aspartate Amino Transf (AST/SGOT) 26 5-34 U/L Alanine Aminotransferase (ALT/SGPT) 49 0-55 U/L Alkaline Phosphatase 82 40-136 U/L C-Reactive Protein High Sensitivity 3.09 H 0.00-0.50 MG/DL Total Protein 7.9 6.4-8.2 GM/DL Albumin 4.5 3.2-4.5 GM/DL Urine Color YELLOW Urine Clarity CLOUDY Urine pH 6.5 5-9 Urine Specific [place] 1.010 L 1.016-1.022 Urine Protein NEGATIVE NEGATIVE Urine Glucose (UA) NEGATIVE NEGATIVE Urine Ketones 2+ H NEGATIVE Urine Nitrite NEGATIVE NEGATIVE Urine Bilirubin NEGATIVE NEGATIVE Urine Urobilinogen 0.2 < = 1.0 MG/DL Urine Leukocyte Esterase NEGATIVE NEGATIVE Urine RBC (Auto) NEGATIVE NEGATIVE Urine RBC NONE /HPF Urine WBC NONE /HPF Urine Crystals NONE /LPF Urine Bacteria NEGATIVE /HPF Urine Casts NONE /LPF Urine Mucus NEGATIVE /LPF Urine Culture Indicated NO My Orders Orders - MARGARET SAMS MD Ct Abd/Pelv W (Appendicitis) (01/18/22 06:18) Cbc With Automated Diff (01/18/22 06:18) Comprehensive Metabolic Panel (01/18/22 06:18) Hs C Reactive Protein (01/18/22 06:18) Ua Culture If Indicated (01/18/22 06:18) Ondansetron Injection (Zofran Injectio (01/18/22 06:30) Ns Iv 1000 Ml (Sodium Chloride 0.9%) (01/18/22 06:18) Ed Iv/Invasive Line Start (01/18/22 06:18) Fentanyl Inj (Sublimaze Injection) (01/18/22 06:18) Ketorolac Injection (Toradol Injection) (01/18/22 06:18) Manual Differential (01/18/22 06:24) Fentanyl Inj (Sublimaze Injection) (01/18/22 08:09) Medications Given in ED Current Medications Medications Dose Ordered Sig/Tiki Route Start Time Stop Time Status Last Admin Dose Admin Ondansetron HCl 4 mg ONCE ONCE IVP 01/18/22 06:30 01/18/22 06:31 DC 01/18/22 06:29 4 MG Vital Signs/I&O 01/18/22 01/18/22 01/18/22 01/18/22 05:41 06:30 06:30 08:29 Temp 36.4 36.4 36.4 36.4 Pulse 76 Resp 16 B/P (MAP) 166/113 (130) Pulse Ox 96 O2 Delivery Room Air Blood Pressure Mean: 130 Progress Progress Note : Progress Note Seen and evaluated. Concerns for appendicitis and less likely kidney stone or urinary tract infection. We will go ahead and initiate IV check labs and UA. CT abdomen pelvis with contrast ordered. Normal saline 1 L bolus as well as fentanyl 50 mcg IV and Toradol 30 mg IV ordered for pain. Ondansetron 4 mg IV for nausea. Monitor patient. 0729: CT scan shows acute appendicitis. I discussed the case with Dr. Garcia. He will see the patient in the emergency department and hopefully be able to take him just to same-day surgery. He states he will be here more than 30 to 45 minutes to see him. I did discuss all of this with the patient who agrees. Patient remains NPO. 0920: Patient has been seen by the surgeon and will go to the OR. We did give an additional dose of fentanyl 50 mcg IV for pain. Patient agrees to our plan. Diagnostic Imaging Diagonstic Imaging: CT Plain Films/CT/US/NM/MRI: abdomen, pelvis Comments [facility] [place], [place] NAME: LOKI MCMILLAN [employer] REC#: [id number] PT STATUS: REG ER : 1995 PHYSICIAN: MARGARET SAMS MD ADMIT DATE: 01/18/22/ER Draft Date of Exam:01/18/22 CT ABD/PELV W (APPENDICITIS) PROCEDURE: CT abdomen and pelvis with contrast, rule out appendicitis. TECHNIQUE: Multiple contiguous axial images were obtained through the abdomen and pelvis after the administration of intravenous contrast. All CT scans use one or more of the following dose optimizing techniques: automated exposure control, MA and/or KvP adjustment based on patient size and exam type or iterative reconstruction. INDICATION: Right lower quadrant pain. FINDINGS: The heart size is normal. The liver is normal in size without focal lesions. Gallbladder is unremarkable. There is no biliary duct dilatation. The spleen is normal. The pancreas, adrenal glands and kidneys are unremarkable. The aorta is nonaneurysmal. Bowel gas pattern is nonspecific. The pancreas is enlarged up to 1 cm with surrounding inflammatory changes suspect for appendicitis. There is no pelvic mass, adenopathy or free fluid. Bladder is normal. The osseous structures are unremarkable. IMPRESSION: Enlarged inflamed appendix with surrounding inflammatory changes compatible with acute appendicitis. Dictated on workstation # [id number] Dict: 01/18/22 [id number] Trans: 01/18/22 0706 KERRY [id number] Interpreted by: JOSELYN BARRETT MD Electronically signed by: Departure Communication (Admissions) Time/Spoke to Admitting Phy: 07:29 Impression Primary Impression: Appendicitis Qualified Codes: K35.30 - Acute appendicitis with localized peritonitis, without perforation or gangrene Disposition: ADMITTED INPATIENT Condition: Stable Admissions Decision to Admit Reason: Admit from ER (General) Decision to Admit/Date: Jan 18, 2022 Time/Decision to Admit Time: 07:29 Departure-Patient Inst. Referrals: NO,LOCAL PHYSICIAN (PCP/Family) Primary Care Physician Scripts No Active Prescriptions or Reported Meds MARGARET SAMS MD Jan 18, 2022 06:23
[2022-01-18] MEDS ORDERED: ONDANSETRON 4 MG/2 ML (SDV) Z0FRAN IVP ONE (06:30)
[2022-01-18 06:40] LABS: BASOPHILS % (AUTO) 0 % (0-10); EOSINOPHILS % (AUTO) 0 % (0-10); HEMATOCRIT 46 % (40-54); HEMOGLOBIN 16.1 g/dL (13.3-17.7); LYMPHOCYTES # (AUTO) 0.8 10^3/uL (1.0-4.0); LYMPHOCYTES % (AUTO) 4 % (12-44); MEAN CORPUSCULAR HEMOGLOBIN 32 pg (25-34); MEAN CORPUSCULAR HGB CONC 35 g/dL (32-36); MEAN CORPUSCULAR VOLUME 93 fL (80-99); MEAN PLATELET VOLUME 8.7 fL (9.0-12.2); MONOCYTES % (AUTO) 5 % (0-12); NEUTROPHILS # (AUTO) 18.6 10^3/uL (1.8-7.8); NEUTROPHILS % (AUTO) 91 % (42-75); PLATELET COUNT 308 10^3/uL (130-400); WHITE BLOOD COUNT 20.5 10^3/uL (4.3-11.0)
[2022-01-18 06:47] LABS: ALBUMIN 4.5 GM/DL (3.2-4.5)
[2022-01-18 06:49] LABS: CALCIUM 9.6 MG/DL (8.5-10.1)
[2022-01-18 06:50] LABS: TOTAL PROTEIN 7.9 GM/DL (6.4-8.2)
[2022-01-18 06:52] LABS: BILIRUBIN,TOTAL 0.8 MG/DL (0.1-1.0)
[2022-01-18 06:54] LABS: CREATININE SERUM 0.88 MG/DL (0.60-1.30)
[2022-01-18 07:02] LABS: LYMPHOCYTES % (MANUAL) 2 %; MONOCYTES % (MANUAL) 5 %; NEUTROPHILS % (MANUAL) 92 %; RBC MORPH NORMAL; REACTIVE LYMPHOCYTES 1 %
--- NOTE | 2022-01-18 07:07 | Diagnostic Imaging Report ---
PROCEDURE: CT abdomen and pelvis with contrast, rule out appendicitis. TECHNIQUE: Multiple contiguous axial images were obtained through the abdomen and pelvis after the administration of intravenous contrast. All CT scans use one or more of the following dose optimizing techniques: automated exposure control, MA and/or KvP adjustment based on patient size and exam type or iterative reconstruction. INDICATION: Right lower quadrant pain. FINDINGS: The heart size is normal. The liver is normal in size without focal lesions. Gallbladder is unremarkable. There is no biliary duct dilatation. The spleen is normal. The pancreas, adrenal glands and kidneys are unremarkable. The aorta is nonaneurysmal. Bowel gas pattern is nonspecific. The pancreas is enlarged up to 1 cm with surrounding inflammatory changes suspect for appendicitis. There is no pelvic mass, adenopathy or free fluid. Bladder is normal. The osseous structures are unremarkable. IMPRESSION: Enlarged inflamed appendix with surrounding inflammatory changes compatible with acute appendicitis. Dictated by: Dictated on workstation # [id number]
[2022-01-18 07:18] LABS: BILIRUBIN,URINE NEGATIVE (NEGATIVE); CLARITY,URINE CLOUDY; COLOR,URINE YELLOW; GLUCOSE, URINE (UA) NEGATIVE (NEGATIVE); KETONES,URINE 2+ (NEGATIVE); LEUKOCYTE ESTERASE ,URINE NEGATIVE (NEGATIVE); NITRITE,URINE NEGATIVE (NEGATIVE); PH,URINE 6.5 (5-9); PROTEIN,URINE NEGATIVE (NEGATIVE)
[2022-01-18 07:26] LABS: BACTERIA,URINE NEGATIVE /HPF
--- NOTE | 2022-01-18 08:23 | Consultation - Surgery ---
MARIYA PAVON 01/18/22 0823: History of Present Illness History of Present Illness Patient Consulted On(zainab/time) 01/18/22 08:15 Date Seen by Provider: Jan 18, 2022 Time Seen by Provider: 07:55 History of Present Illness 26 year old male with no known significant PMH presented to [facility] ER with a chief complaint of abdominal pain. Patient states that the pain started two days ago in the periumbilical region that has progressively gotten worse and since radiated to the RLQ. Patient states the pain is a deep ache with superimposed occasional stabbing pain. Patient associates nausea, vomiting, diarrhea, chills with this pain. Patient states he did not try anything to make this pain better, as he initially thought it might've just been something he ate. Patient states t hat pressure and movement make his pain worse. The pain has been constant with occasional sharp increases in pain. At rest pain is a 5/10, at the worst it was an 8/10. Currently around a 5/10. 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 Patient states it has been approximately three years or slightly longer since he has used methamphetamine. Patient states his last drink and meal was last night at 9pm, which he promptly threw up. He has not had anything since. Allergies and Home Medications Allergies Coded Allergies: No Known Drug Allergies (Unverified , 04/08/14) Patient Home Medication List Home Medication List Reviewed: Yes No Active Prescriptions or Reported Meds Past Fsewpea-Iqknmm-Chyzdg Hx Patient Social History Drug of Choice: SMOKES METH AND THC Smoking Status: Current Everyday Smoker Cigarettes Per Day: 20 Type Used: Cigarettes 2nd Hand Smoke Exposure: Yes Recent Hopitalizations: No Alcohol Use?: Yes (drinks 2 times/week 10 beers or so each time) Substance type: Marijuana Have you traveled recently?: No Immunizations Up To Date Tetanus Booster (TDap): More than 5yrs PED Vaccines UTD: Yes Seasonal Allergies Seasonal Allergies: Yes Surgeries History of Surgeries: Yes Surgeries: Adenoidectomy, Ear Surgery, Tonsillectomy Respiratory History of Respiratory Disorde: No Cardiovascular History of Cardiac Disorders: No Cardiac Disorders: Hypotension Neurological History of Neurological Disord: Yes Neurological Disorders: Headaches /Migraines Reproductive System Hx Reproductive Disorders: No Sexually Transmitted Disease: No Genitourinary History of Genitourinary Disor: No Gastrointestinal History of Gastrointestinal Di: No Musculoskeletal History of Musculoskeletal Dis: No Endocrine History of Endocrine Disorders: No HEENT History of HEENT Disorders: No Cancer History of Cancer: No Psychosocial History of Psychiatric Problem: Yes (POLYSUBSTANCE ABUSE) Integumentary History of Skin or Integumenta: No Blood Transfusions History of Blood Disorders: No Family Medical History Significant Family History: Heart Disease, Diabetes, Hypertension Review of Systems-General Constitutional: chills; No diaphoresis EENTM: No blurred vision, No eye pain Respiratory: No cough, No short of breath Cardiovascular: No chest pain, No palpitations Gastrointestinal: abdominal pain (RLQ), diarrhea, nausea, vomiting Genitourinary: No dysuria, No frequency Musculoskeletal: No joint pain, No joint swelling Skin: No change in color, No change in hair/nails Psychiatric/Neurological: Denies Anxiety, Denies Depressed Physical Exam-General Problems Physical Exam Vital Signs Vital Signs - First Documented 01/18/22 05:41 Temp 36.4 Pulse 76 Resp 16 B/P (MAP) 166/113 (130) Pulse Ox 96 O2 Delivery Room Air Capillary Refill : Less Than 3 Seconds General Appearance: WD/WN, no apparent distress HEENT: PERRL/EOMI Neck: non-tender, supple Respiratory: chest non-tender, lungs clear, normal breath sounds, no respiratory distress, no accessory muscle use Cardiovascular: regular rate, rhythm, no murmur Gastrointestinal: soft, tenderness (RLQ, (+) Mcburney, Rebound) Rectal: deferred Back: no CVA tenderness, no vertebral tenderness Extremities: non-tender, no pedal edema, no calf tenderness Neurologic/Psychiatric: alert, normal mood/affect, oriented x 3 Skin: normal color, warm/dry Data Review Labs Laboratory Tests 01/18/22 06:24: White Blood Count 20.5H, Red Blood Count 4.97, Hemoglobin 16.1, Hematocrit 46, Mean Corpuscular Volume 93, Mean Corpuscular Hemoglobin 32, Mean Corpuscular Hemoglobin Concent 35, Red Cell Distribution Width 12.3, Platelet Count 308, Mean Platelet Volume 8.7L, Immature Granulocyte % (Auto) 0, Neutrophils (%) (Auto) 91H, Lymphocytes (%) (Auto) 4L, Monocytes (%) (Auto) 5, Eosinophils (%) (Auto) 0, Basophils (%) (Auto) 0, Neutrophils # (Auto) 18.6H, Lymphocytes # (A uto) 0.8L, Monocytes # (Auto) 1.0, Eosinophils # (Auto) 0.0, Basophils # (Auto) 0.0, Immature Granulocyte # (Auto) 0.1, Neutrophils % (Manual) 92, Lymphocytes % (Manual) 2, Monocytes % (Manual) 5, Reactive Lymphocytes 1, Blood Morphology Comment NORMAL, Sodium Level 139, Potassium Level 4.0, Chloride Level 104, Carbon Dioxide Level 21, Anion Gap 14, Blood Urea Nitrogen 12, Creatinine 0.88, Estimat Glomerular Filtration Rate 123, BUN/Creatinine Ratio 14, Glucose Level 117H, Calcium Level 9.6, Corrected Calcium 9.2, Total Bilirubin 0.8, Aspartate Amino Transf (AST/SGOT) 26, Alanine Aminotransferase (ALT/SGPT) 49, Alkaline Phosphatase 82, C-Reactive Protein High Sensitivity 3.09H, Total Protein 7.9, Albumin 4.5 01/18/22 07:15: Urine Color YELLOW, Urine Clarity CLOUDY, Urine pH 6.5, Urine Specific [place] 1.010L, Urine Protein NEGATIVE, Urine Glucose (UA) NEGATIVE, Urine Ketones 2+H, Urine Nitrite NEGATIVE, Urine Bilirubin NEGATIVE, Urine Urobilinogen 0.2, Urine Leukocyte Esterase NEGATIVE, Urine RBC (Auto) NEGATIVE, Urine RBC NONE, Urine WBC NONE, Urine Crystals NONE, Urine Bacteria NEGATIVE, Urine Casts NONE, Urine Mucus NEGATIVE, Urine Culture Indicated NO Radiology [facility], [place] NAME: LOKI MCMILLAN [facility] REC#: [id number] PT STATUS: REG ER : 1995 PHYSICIAN: MARGARET SAMS MD ADMIT DATE: 01/18/22/ER Draft Date of Exam:01/18/22 CT ABD/PELV W (APPENDICITIS) PROCEDURE: CT abdomen and pelvis with contrast, rule out appendicitis. TECHNIQUE: Multiple contiguous axial images were obtained through the abdomen and pelvis after the administration of intravenous contrast. All CT scans use one or more of the following dose optimizing techniques: automated exposure control, MA and/or KvP adjustment based on patient size and exam type or iterative reconstruction. INDICATION: Right lower quadrant pain. FINDINGS: The heart size is normal. The liver is normal in size without focal lesions. Gallbladder is unremarkable. There is no biliary duct dilatation. The spleen is normal. The pancreas, adrenal glands and kidneys are unremarkable. The aorta is nonaneurysmal. Bowel gas pattern is nonspecific. The pancreas is enlarged up to 1 cm with surrounding inflammatory changes suspect for appendicitis. There is no pelvic mass, adenopathy or free fluid. Bladder is normal. The osseous structures are unremarkable. IMPRESSION: Enlarged inflamed appendix with surrounding inflammatory changes compatible with acute appendicitis. Dictated on workstation # [id number] Dict: 01/18/22 0657 Trans: 01/18/22 0706 [facility] [id number] Interpreted by: JOSELYN BARRETT MD Electronically signed by: Assessment/Plan Assessment/Plan Assessment/Plan Acute Appendicitis Plan Laparoscopic appendectomy possible open and all other indicated procedures CT reviewed and case discussed with ED physician. Discussion had with patient about imaging results and plan to proceed with surgery. Patient is agreeable to procedure and is just hopeful it will help his pain. Risks discussed including: scarring, infection, bowel perforation, possible open procedure. Patient still agreeable with surgery. Discussed what to expect after surgery, including precautions and outpatient follow up. Patient's fiancee will be with patient and taking care of him over the weekend. Let patient's know that if they had any other questions to just let someone know and they would get ahold of us. FAYE ALCANTAR DO 01/18/22 0919: History of Present Illness History of Present Illness Time Seen by Provider: 08:56 History of Present Illness Surgery asked to consult regarding RLQ pain. HPI per ED: Here with report of right lower quadrant abdominal pain started more central but moving more towards the right. This has been going on for 2 days. It is associated with nausea and some dry heaves as well as diarrhea. Moving around makes it worse. Reports that it is hard to get into a comfortable position. Denies blood in his urine or stool. He has not had anything like this before. Markedly worsening overnight. When I spoke to pt he was more comfortable after pain meds. Has not eaten since last night. Pain is in RLQ, moved from umbilical region. Allergies and Home Medications Allergies Coded Allergies: No Known Drug Allergies (Unverified , 04/08/14) Patient Home Medication List Home Medication List Reviewed: Yes No Active Prescriptions or Reported Meds Past Hovavzn-Oqdogv-Cqqnxv Hx Patient Social History Smoking Status: Current Everyday Smoker Alcohol Use?: Yes (drinks 2 times/week 10 beers or so each time) Surgeries History of Surgeries: Yes Surgeries: Adenoidectomy, Ear Surgery, Tonsillectomy Respiratory History of Respiratory Disorde: No Cardiovascular History of Cardiac Disorders: No Neurological History of Neurological Disord: Yes Neurological Disorders: Headaches /Migraines Genitourinary History of Genitourinary Disor: No Gastrointestinal History of Gastrointestinal Di: No Musculoskeletal History of Musculoskeletal Dis: No Endocrine History of Endocrine Disorders: No HEENT History of HEENT Disorders: No Loss of Vision: Denies Hearing Impairment: Denies Cancer History of Cancer: No Psychosocial History of Psychiatric Problem: No Family Medical History Significant Family History: Heart Disease, Diabetes, Hypertension Review of Systems-General Constitutional: chills; No diaphoresis EENTM: No blurred vision, No eye pain Respiratory: No cough, No short of breath Cardiovascular: No chest pain, No palpitations Gastrointestinal: abdominal pain (RLQ), diarrhea, nausea, vomiting Genitourinary: No dysuria, No frequency Musculoskeletal: No joint pain, No joint swelling Skin: No change in color, No change in hair/nails Psychiatric/Neurological: Denies Anxiety, Denies Depressed, Denies Seizure, Denies Tremors Physical Exam-General Problems Physical Exam General Appearance: WD/WN, mild distress Eyes: Bilateral Eye PERRL, Bilateral Eye EOMI HEENT: pharynx normal; No scleral icterus (R), No scleral icterus (L) Neck: non-tender, supple Respiratory: chest non-tender, lungs clear, normal breath sounds, no respiratory distress, no accessory muscle use Cardiovascular: regular rate, rhythm, no murmur Gastrointestinal: soft, no organomegaly, tenderness (RLQ, (+) Mcburney, Rebound), hernia (small umbilical hernia) Rectal: deferred Back: no CVA tenderness, no vertebral tenderness Extremities: non-tender, no pedal edema, no calf tenderness Neurologic/Psychiatric: alert, normal mood/affect, oriented x 3 Skin: normal color, warm/dry Lymphatic: no adenopathy (neck, axilla or groin) Assessment/Plan Assessment/Plan Assessment/Plan Acute Appendicitis Plan Laparoscopic appendectomy possible open and all other indicated procedures I reviewed the CT myself and discussed case with ED physician. I went over surgery with pt including risks and complications not limited to pain, bleeding, scar, infection, bowel perforation, possible open procedure. Patient ready for surgery. Discussed what to expect after surgery, including precautions and outpatient follow up. All questions answered to pt and his significant others satisfaction. He will get IV fluids, pain meds as needed, anti-emetics and IV ABX 1/2 hour prior to surgery. Supervisory-Addendum Brief Verification & Attestation Participated in pt care: history, MDM, physical Personally performed: exam, history, MDM, supervision of care Care discussed with: Medical Student Procedures: n/a Verification and Attestation of Medical Student E/M Service A medical student performed and documented this service. I then reviewed and verified all information documented by the medical student and made modifications to such information, when appropriate. I personally performed a physical exam, medical decision making and then discussed any differences between the notes and made revisions as necessary to create one note. Faye Alcantar , 01/18/22 , 09:19 MARIYA PAVON Jan 18, 2022 08:23 FAYE ALCANTAR DO Jan 18, 2022 09:19
[2022-01-18] MEDS ORDERED: fentaNYL INJ 100 MCG/2 ML AMP ONE ×2 (09:20→10:06)
[2022-01-18] MEDS ORDERED: MIDAZOLAM 2 MG/2 ML (VERSED) VIAL ONE (09:20)
[2022-01-18] MEDS ORDERED: LACTATED RINGERS 1,000 ML IV ONE (09:22)
[2022-01-18] MEDS ORDERED: LIDOCAINE/EPI 1%-1:100,000 (XYLOCAINE) 10 ML ONE (09:26)
[2022-01-18] MEDS ORDERED: ceFAZolin INJECTION 2,000 MG ONE (09:49)
[2022-01-18] MEDS ORDERED: NS (IVPB) 50 ML ONE (09:50)
[2022-01-18] MEDS ORDERED: CEFAZOLIN IV ONE (10:07)
[2022-01-18] MEDS ORDERED: proPOfol 200 MG/20 ML (DIPRIVAN) VIAL IV ONE (10:22)
[2022-01-18] MEDS ORDERED: ONDANSETRON 4 MG/2 ML (SDV) Z0FRAN ONE (10:22)
[2022-01-18] MEDS ORDERED: LIDOCAINE PF 2% 5 ML (XYLOCAINE) VIAL ONE (10:22)
[2022-01-18] MEDS ORDERED: ROCURONIUM 10 MG/ML 5 ML SYRINGE IV ONE (10:23)
[2022-01-18] MEDS ORDERED: LIDOCAINE/EPI 1%-1:100,000 (XYLOCAINE) 10 ML INJ ONE (10:24)
[2022-01-18] MEDS ORDERED: LACTATED RINGERS 1,000 ML IV PRN (10:30)
--- NOTE | 2022-01-18 11:09 | Anesthesia-General Post-Op ---
General Patient Condition Mental Status/LOC: Same as Preop Cardiovascular: Satisfactory Nausea/Vomiting: Absent Respiratory: Satisfactory Pain: Controlled Complications: Absent Post Op Complications Complications None Follow Up Care/Instructions Patient Instructions None needed. Anesthesia/Patient Condition Patient Condition Patient is doing well, no complaints, stable vital signs, no apparent adverse anesthesia problems. No complications reported per nursing. LETICIA CEDILLO CRNA Jan 18, 2022 11:09
[2022-01-18] MEDS ORDERED: fentaNYL INJ 100 MCG/2 ML AMP IVP ONE (11:15)
[2022-01-18] MEDS ORDERED: ONDANSETRON 4 MG/2 ML (SDV) Z0FRAN IVP PRN (11:15)
[2022-01-18] MEDS ORDERED: morphine INJ 10 MG/ML 1ML (SYR OR VIAL) IVP ONE (11:15)
[2022-01-18] MEDS ORDERED: ACHD5005 PO (11:31)
--- NOTE | 2022-01-18 11:31 | Progress Note-Post Operative ---
Post-Operative Progess Note Surgeon (s)/Director Employment (s) Surgeon FAYE ALCANTAR DO Director Employment: [employer] Pre-Operative Diagnosis acute appy Post-Operative Diagnosis same plus beginning or right inguinal hernia Procedure & Operative Findings Date of Procedure 01/18/22 Procedure Performed/Findings PROCEDURE: Laparoscopic appendectomy. COMPLICATIONS: None. INDICATIONS: The patient is a 26 year old male who has been having right lower quadrant abdominal pain. Patient's exam consistent with appendicitis. I discussed risk and benefits of laparoscopic appendectomy and all indicated procedures with the possibility being a normal appendix. The patient understands the risks and benefits and wishes to proceed. Consent was signed on the chart. DESCRIPTION OF PROCEDURE: The patient was taken to the operating suite, prepped and draped in a sterile fashion. Timeout was performed. Local anesthetic was infiltrated just above the umbilicus and 11-blade scalpel was used to make a skin incision. Cautery was used to dissect down to the fascia and scored. Kochers were used to grasp and elevate it and the abdomen was then entered. A 0 Vicryl was placed in a [id number] fashion for closure at the end of the case. The balloon trocar was inserted into the abdomen and pneumoperitoneum was achieved. Under direct visualization of the laparoscope, a 5 mm trocar was placed in the suprapubic region and a 5 mm trocar was placed in the left lower quadrant. Appendix was located, it was very inflamed and thickened; had not ruptured. It was under and into the mesentery under terminal ileum and cecum. Started dissecting it out with the Ligasure, in a stepwise fashion; clamping, coagulating, and cutting. Carefully coming across and ligating the appendiceal artery. Once at the base an Endo-DINORA 2.5 stapler was then fired across the base of the appendix. It was then placed in an Endobag and removed through the 12 mm trocar site. The abdomen was then irrigated and s uctioned. A small early indirect right inguinal hernia was seen, picture taken. The abdomen was then desufflated and the trocars were removed. The 0 Vicryl placed at the beginning of the case was then tied closing the 12 mm fascial defect. The skin was then closed using 4-0 Monocryl in a subcuticular fashion. The abdomen was then washed and dried and Skin Affix was placed over the incisions. The patient tolerated the procedure well without any complications and was taken to the recovery room in stable condition. Anesthesia Type GET Estimated Blood Loss Estimated blood loss (mL): scant Specimens/Packing Specimens Removed FAYE Guardado DO Jan 18, 2022 11:31
--- NOTE | 2022-01-18 11:33 | Discharge Inst-Surgical ---
Discharge Inst-Surgical Depart Medication/Instructions New, Converted or Re-Newed RX: Transmitted to Pharmacy Patient Instructions Follow up Appt: Make appointment for 1 week. [phone] Instructions: No lifting greater than 20 pounds. No strenuous activity. May shower in 24 hours, no tub bath or soaking. Use incentive spirometer at home as directed. No Smoking Skin/Wound Care: May remove bandages in am. You need to leave the Dermabond on incision it will fall off on it's own. Symptoms to Report: Appetite Changes, Extremity Discoloration, Numbness/Tingling, Swelling Increased, Bleeding Excessive, Eyesight Changes, Pain Increased, Urine Color Change, Constipation(Persistent), Fever over 101 degree F, Pain/Pressure in chest, Urinating Difficulty, Cough Up/Vomit Blood, Heart Beat Irreg/Pounding, Pain/Pressure in jaw, Cramps in feet or legs, Lightheadedness, Pain/Pressure in shoulder, Diarrhea(Persistent), Memory Changes Suddenly, Questions/Concerns, Weight gain consecutive days, Dizziness/Fainting, Nausea/Vomiting, Shortness of Breath, Weight gain over 2 pounds If questions or concerns contact your physician Or seek help at emergency department. Activity Activity as Tolerated: Yes Activity Instructions: Avoid Stress to Incision Driving Instructions: No Driving/Refer to Dr. Uriostegui Discharge Diet: No Restrictions Diet After 24 Hours: Clear Liquid if Nauseous If Any Problems/Questions/Issu: Contact Your Physician, Go to Emergency Room Skin/Wound Care Infection Signs and Symptoms: Increased Redness, Foul Odor of Wound, Increased Drainage, Skin Itchy or Has a Rash, Increased Swelling, Temperature Above 101 F Wound Care Comment: heating pad to shoulder or neck tonight for pain Bathing Instructions: Shower Stitches/[place]/Dermabond Dis: Dermabond Ice Pack: Ice On and Off Site FAYE ALCANTAR DO Jan 18, 2022 11:33
== END 2022-01-18 12:52 | disposition home or self-care (01) ==
LOC: EDUNIT# 05:34 → ER 05:37 → SDC 09:35
PROVIDERS: ATTEND Surgery
DX: K35.30 Acute appendicitis with localized peritonitis, without perforation or gangrene (principal); K40.90 Unilateral inguinal hernia, without obstruction or gangrene, not specified as recurrent; F17.210 Nicotine dependence, cigarettes, uncomplicated
CPT/HCPCS: 36415; 74177; 80053; 81000; 85007; 85027; 86141; 88304; 96361; 96374; 96375; 96376